=== PATIENT | male | born 1950 | race Caucasian/White ===

== ENCOUNTER 2021-08-26 15:35 | Emergency (ER) | payer MEDICARE ==
[2021-08-26 16:14] LABS: Blood, Urine Large (Negative); Glucose, Urine (Dipstick) 100 mg/dL (Negative); pH, Urine 5.5 (5.0-9.0)
[2021-08-26 16:19] LABS: Leukocyte Unable to Interpret (Negative); Nitrite Unable to Interpret (Negative)
[2021-08-26 16:20] LABS: Bacteria/HPF 1+ HPF (None Seen); Bilirubin Unable to Interpret (Negative); Clarity Hazy (Clear); Ketone, Urine Unable to Interpret mg/dL (Negative); Protein, Urine (Dipstick) Unable to Interpret mg/dL (Neg-Trace); RBC/HPF Greater than 50 HPF (0-3); Squamous Epithelial 0-3 HPF (0-3); WBC/HPF 0-3 HPF (0-3)
[2021-08-26 16:21] LABS: Calcium Oxalate Crystals Rare HPF (None Seen)
== END 2021-08-26 17:40 | disposition home or self-care (01) ==
LOC: MADERS 15:35
DX: N40.1 Benign prostatic hyperplasia with lower urinary tract symptoms (principal); R33.8 Other retention of urine; R31.9 Hematuria, unspecified; E78.5 Hyperlipidemia, unspecified; E78.00 Pure hypercholesterolemia, unspecified; I25.2 Old myocardial infarction; I10 Essential (primary) hypertension; I25.10 Atherosclerotic heart disease of native coronary artery without angina pectoris; Z86.73 Personal history of transient ischemic attack (TIA), and cerebral infarction without residual deficits; Z87.891 Personal history of nicotine dependence; Z79.899 Other long term (current) drug therapy; Z79.82 Long term (current) use of aspirin
CPT/HCPCS: 51702; 81003; 81015; 87086